=== PATIENT | female | born 1950 | race Caucasian/White ===

== ENCOUNTER 2021-10-02 14:14 | Emergency (ER) | payer MEDICARE, OTHER, SELFPAY ==
[2021-10-02] VITALS (9 sets, daily range): BP systolic 101–125; BP diastolic 79–89; PULSE 61–93; RESP 12–18; TEMP 36.2; O2SAT 93–98; BMI 27.3
--- NOTE | 2021-10-02 15:27 | XR_ITS ---
Final Report Patient: PRIYANKA MARLEY Facility:?[facility] Patient ID:?[id number] Site Patient ID:?[id number]. Site :?[id number] Study:?XRay Chest PORTABLE-10/02/2021 3:45:58 PM Ordering Physician:Ravinder Ann Final Report: INDICATION: Shortness of breath. TECHNIQUE: Chest 1 views. COMPARISON: Chest x-ray 12/27/2020. FINDINGS: Cardiovascular and mediastinum: Heart size and vasculature are normal in caliber and appearance. Lungs and pleural spaces: Lungs are clear. No sign of infiltrate or mass. No sign of pleural effusion. No pneumothorax. Bones and soft tissues: No significant findings. IMPRESSION: No acute findings and no significant changes from the prior exam. Dictated by Elijah Dawkins MD @ 10/02/2021 4:05:03 PM (Electronic Signature)
--- NOTE | 2021-10-02 15:29 | ED.GENADULT ---
HPI - General Adult General Chief complaint: Shortness of Breath/Dyspnea <Marissa Brewer MD - Last Filed: 10/02/21 16:21> Stated complaint: Short of breath, high BP <Marissa Brewer MD - Last Filed: 10/02/21 16:21> Time Seen by Provider: 10/02/21 15:19 <Marissa Brewer MD - Last Filed: 10/02/21 16:21> Source: patient <Marissa Brewer MD - Last Filed: 10/02/21 16:21> Mode of arrival: ambulatory <Marissa Brewer MD - Last Filed: 10/02/21 16:21> Limitations: no limitations <Marissa Brewer MD - Last Filed: 10/02/21 16:21> History of Present Illness HPI narrative: 71-year-old female coming in today complaining of shortness of breath. She states that she was in her usual state of health today when she all of a sudden felt ?awful?. She states that this sensation came over her where she just did not feel good and it came on very suddenly. She checked her blood pressure and it was 190 systolic. She felt acutely short of breath. She states that the shortness of breath continues right now. The sensation started about 2 hours ago and she is generally back to normal however again she feels short of breath with minimal physical activity. She denies any chest pain. She denies fevers, chills, nausea or vomiting. She states that when this occurred her stomach felt like it was in knots but this has resolved. She denies any confusion, changes in her speech or focal weakness. She denies any presyncopal syncopal episode. She has no headache, changes in her vision or hearing. She states that she ate a bowl of soup in pizza for lunch, nothing out of the ordinary. Again, she is concerned because her shortness of breath continues, however she is not short of breath when she is resting. Patient is generally healthy, taking only famotidine and nasal spray as needed. Lives at home with her . She does have a history of asthma however has not had any inhalers or issues with shortness of breath in quite some time. <Marissa Brewer MD - Last Filed: 10/02/21 16:21> Related Data Home medications: Home Medications Medication Instructions Recorded Confirmed famotidine 20 mg tablet (Pepcid) 20 mg PO DAILY 10/02/21 10/02/21 fluticasone propionate 50 1 spray intranasal DAILY PRN 10/02/21 10/02/21 mcg/actuation nasal spray,suspension (24 Hour Allergy Relief) <Marissa Brewer MD - Last Filed: 10/02/21 16:21> Allergies/adverse reactions: Allergies Allergy/AdvReac Type Severity Reaction Status Date / Time No Known Drug Allergies Allergy Verified 10/02/21 14:59 <Marissa Brewer MD - Last Filed: 10/02/21 16:21> Review of Systems Status of ROS: Reports: 10 or more systems reviewed and unremarkable except as noted in History and below <Marissa Brewer MD - Last Filed: 10/02/21 16:21> [facility] Social History: Social History Smoking Status: Never smoker Do you use any of these nicotine containing products: None Second hand tobacco smoke exposure: No How often do you have a drink containing alcohol: never AUDIT-C Alcohol total score: 0 Non-prescribed substance use: denies use <Marissa Brewer MD - Last Filed: 10/02/21 16:21> Exam Narrative: Exam Narrative: Well-nourished well-developed patient in no acute distress. Alert and oriented. Answers questions appropriately. Mood and affect are appropriate. Thoughts are goal oriented and rational. No tangential or magical thinking noted. Patient speaks in full sentences without needing to catch her breath. Speaks without difficulty, speech is not slurred or pressured. HEENT: Normocephalic atraumatic. Pupils are equally round reactive to light. Extraocular muscles are intact. Conjunctivae are moist without any icterus noted. Moist mucous membranes. Posterior pharynx is normal. Neck is soft without any lymphadenopathy or thyromegaly. No masses are appreciated. Cardiovascular: Heart is regular rate and rhythm S1 and S2 are present without any murmurs. Lungs: Clear to auscultation bilaterally no wheezes rhonchi or rales are appreciated. Patient takes deep breaths without any discomfort. Abdomen: Soft and nontender nondistended with normal bowel sounds. No guarding or rebound. No masses or organomegaly appreciated. Extremities: Bilateral lower extremities are without edema. Normal DP and PT pulses. Skin: Well perfused without any obvious rashes. <Marissa Brewer MD - Last Filed: 10/02/21 16:21> Const: Vital Signs, click to edit/add: Vital Signs - 24 hr 10/02/21 14:48 10/02/21 15:00 10/02/21 15:15 Temperature 97.1 F L Pulse Rate [Right Pulse Oximeter] 93 82 84 Respiratory Rate 18 18 12 Blood Pressure [Ri ght Upper Arm] 125/79 110/84 115/83 Pulse Oximetry 95 96 94 Oxygen Delivery Me thod Room Air Room Air Room Air 10/02/21 15:30 10/02/21 16:00 Temperature Pulse Rate [Right Pulse Oximeter] 79 75 Respiratory Rate 18 18 Blood Pressure [Ri ght Upper Arm] 118/89 104/86 Pulse Oximetry 93 97 Oxygen Delivery Me thod Room Air Room Air <Marissa Brewer MD - Last Filed: 10/02/21 16:21> Vital Signs, click to edit/add: Vital Signs - 24 hr 10/02/21 14:48 10/02/21 15:00 10/02/21 15:15 Temperature 97.1 F L Pulse Rate [Right Pulse Oximeter] 93 82 84 Respiratory Rate 18 18 12 Blood Pressure [Ri ght Upper Arm] 125/79 110/84 115/83 Pulse Oximetry 95 96 94 Oxygen Delivery Me thod Room Air Room Air Room Air 10/02/21 15:30 10/02/21 16:00 Temperature Pulse Rate [Right Pulse Oximeter] 79 75 Respiratory Rate 18 18 Blood Pressure [Ri ght Upper Arm] 118/89 104/86 Pulse Oximetry 93 97 Oxygen Delivery Me thod Room Air Room Air <Donna Logan MD - Last Filed: 10/02/21 18:57> Course Course Hospital Course: I was asked to take over care of this patient by Dr. Brewer. Currently awaiting 2nd set of cardiac enzymes as well as EKG and read of the chest x-ray. <Marissa Brewer MD - Last Filed: 10/02/21 16:21> Vital Signs Vital signs: Initial Vital Signs Temperature 97.1 F L 10/02/21 14:48 Temperature Source Temporal Artery Scan 10/02/21 14:48 Pulse Rate 93 10/02/21 14:48 Pulse Rhythm 10/02/21 14:48 Respiratory Rate 18 10/02/21 14:48 Blood Pressure 125/79 10/02/21 14:48 Blood Pressure Mean 94 10/02/21 14:48 Blood Pressure Position Sitting 10/02/21 14:48 Pulse Oximetry 95 10/02/21 14:48 Oxygen Delivery Method 10/02/21 14:48 Vital Signs Temperature 97.1 F L 10/02/21 14:48 Pulse Rate 93 10/02/21 14:48 Respiratory Rate 18 10/02/21 14:48 Blood Pressure 125/79 10/02/21 14:48 Pulse Oximetry 95 10/02/21 14:48 Oxygen Delivery Method 10/02/21 14:48 Temperature 97.1 F L 10/02/21 14:48 Pulse Rate 75 10/02/21 16:00 Respiratory Rate 18 10/02/21 16:00 Blood Pressure 104/86 10/02/21 16:00 Pulse Oximetry 97 10/02/21 16:00 Oxygen Delivery Method 10/02/21 16:00 <Marissa Brewer MD - Last Filed: 10/02/21 16:21> Initial Vital Signs Temperature 97.1 F L 10/02/21 14:48 Temperature Source Temporal Artery Scan 10/02/21 14:48 Pulse Rate 93 10/02/21 14:48 Pulse Rhythm 10/02/21 14:48 Respiratory Rate 18 10/02/21 14:48 Blood Pressure 125/79 10/02/21 14:48 Blood Pressure Mean 94 10/02/21 14:48 Blood Pressure Position Sitting 10/02/21 14:48 Pulse Oximetry 95 10/02/21 14:48 Oxygen Delivery Method 10/02/21 14:48 Vital Signs Temperature 97.1 F L 10/02/21 14:48 Pulse Rate 93 10/02/21 14:48 Respiratory Rate 18 10/02/21 14:48 Blood Pressure 125/79 10/02/21 14:48 Pulse Oximetry 95 10/02/21 14:48 Oxygen Delivery Method 10/02/21 14:48 Temperature 97.1 F L 10/02/21 14:48 Pulse Rate 75 10/02/21 16:00 Respiratory Rate 18 10/02/21 16:00 Blood Pressure 104/86 10/02/21 16:00 Pulse Oximetry 97 10/02/21 16:00 Oxygen Delivery Method 10/02/21 16:00 <Donna Logan MD - Last Filed: 10/02/21 18:57> Medical Decision Making MDM Narrative Medical decision making narrative: 1. Shortness of breath-patient's symptoms have resolved. She has 2 sets of cardiac enzymes that are negative and EKGs which are very reassuring at this time. Did speak with patient who has had normal blood pressure during her time here. tells me that in the past Jane has had episodes of atrial fibrillation and flutter. She has worn a Holter monitor before. She is not currently on any blood thinners. No evidence of an arrhythmia was noted during her stay here in the emergency room. I recommend follow-up with her primary MD for assessment for need of Holter monitor. Would also recommend thrice daily blood pressure checks for 5 days and follow-up. Chest x-ray, cardiac enzymes and EKGs reassuring at this time. D-dimer is negative. 2. Disposition-patient is discharged home. She has eaten some chicken here and has remained alert oriented and stable without any chest pain or shortness of breath. <Donna Logan MD - Last Filed: 10/02/21 18:57> Medical Records Medical records reviewed: Yes I reviewed the patient's medical records <Donna Logan MD - Last Filed: 10/02/21 18:57> Lab Data Lab results reviewed: Yes I reviewed the patient's lab results <Donna Logan MD - Last Filed: 10/02/21 18:57> Labs: Lab Results 10/02/21 10/02/21 10/02/21 Range/Units 15:40 15:55 16:02 WBC 7.01 (4.50-11.00) K/uL RBC 5.07 (4.00-5.20) m/uL Hgb 14.6 (12.0-16.0) gm/dL Hct 44.9 (33.0-51.0) % MCV 89 (80-100) fL MCH 29 (26-34) pg MCHC 33 (32-36) gm/dL RDW Coeff of Judy 12.9 (11.5-15.5) % Plt Count 299 (140-440) K/uL Neut % (Auto) 59.6 (42.0-72.0) % Lymph % (Auto) 27.7 (20-44) % [place] % (Auto) 10.1 (0.0-11.0) % Eos % (Auto) 1.7 (0.0-7.0) % Baso % (Auto) 0.6 (0.0-3.0) % Neut # (Auto) 4.18 (1.7-7.0) K/uL Lymph # (Auto) 1.94 (0.90-2.90) K/uL [place] # (Auto) 0.70 (0.00-0.90) K/UL Eos # (Auto) 0.12 (0.00-0.50) K/uL Baso # (Auto) 0.04 (0.00-0.30) K/uL Abs Immat Gran (auto) 0.02 (0.00-0.30) K/uL ESR (2-20) mm/hr D-Dimer Quant (PE/DVT) (0.00-0.50) ug/ml Sodium (135-149) mmol/L Potassium (3.6-5.1) mmol/L Chloride (96-114) mmol/L Carbon Dioxide (20-32) mmol/L BUN (7-30) mg/dL Creatinine (0.5-1.5) mg/dL Estimated Creat Clear Estimated GFR ml/min Glucose (60-115) mg/dL Calcium (8.4-10.6) mg/dL Total Bilirubin 0.5 (0.1-1.5) mg/dL Direct Bilirubin 0.3 (0.0-0.5) mg/dL AST 73 H (12-35) U/L ALT 56 H (4-35) U/L Alkaline Phosphatase 72 (40-150) U/L C-Reactive Protein (0.5-1.0) mg/dL Total Protein 7.6 (6.0-8.3) g/dL Albumin 4.3 (3.3-5.0) g/dL Urine Color (Yellow) Urine Appearance (Clear) Urine pH (5.0-8.5) Ur Specific [place] (1.000-1.030) Urine Protein (Negative) Urine Glucose (UA) (Negative) Urine Ketones (Negative) Urine Blood (Negative) Urine Nitrite (Negative) Urine Bilirubin (Negative) Urine Urobilinogen (0.2-1.0) Ur Leukocyte Esterase (Negative) Urine RBC (0-2) Urine WBC (0-5) Ur Squamous Epith Cells (None-Few) Urine Bacteria (None) SARS-CoV-2 (PCR) Negative SARS-CoV-2 (Negative) Influenza Type A (PCR) Negative PCR FLU A (Negative) Influenza Type B (PCR) Negative PCR FLU B (Negative) POC Troponin I (0.01-0.04) ng/ml 10/02/21 10/02/21 10/02/21 Range/Units 16:02 16:02 16:02 WBC (4.50-11.00) K/uL RBC (4.00-5.20) m/uL Hgb (12.0-16.0) gm/dL Hct (33.0-51.0) % MCV (80-100) fL MCH (26-34) pg MCHC (32-36) gm/dL RDW Coeff of Judy (11.5-15.5) % Plt Count (140-440) K/uL Neut % (Auto) (42.0-72.0) % Lymph % (Auto) (20-44) % [place] % (Auto) (0.0-11.0) % Eos % (Auto) (0.0-7.0) % Baso % (Auto) (0.0-3.0) % Neut # (Auto) (1.7-7.0) K/uL Lymph # (Auto) (0.90-2.90) K/uL [place] # (Auto) (0.00-0.90) K/UL Eos # (Auto) (0.00-0.50) K/uL Baso # (Auto) (0.00-0.30) K/uL Abs Immat Gran (auto) (0.00-0.30) K/uL ESR 6 (2-20) mm/hr D-Dimer Quant (PE/DVT) 0.32 (0.00-0.50) ug/ml Sodium 142 (135-149) mmol/L Potassium 4.3 (3.6-5.1) mmol/L Chloride 109 (96-114) mmol/L Carbon Dioxide 26 (20-32) mmol/L BUN 16 (7-30) mg/dL Creatinine 0.5 (0.5-1.5) mg/dL Estimated Creat Clear 47.10 Estimated GFR 101 ml/min Glucose 99 (60-115) mg/dL Calcium 9.2 (8.4-10.6) mg/dL Total Bilirubin (0.1-1.5) mg/dL Direct Bilirubin (0.0-0.5) mg/dL AST (12-35) U/L ALT (4-35) U/L Alkaline Phosphatase (40-150) U/L C-Reactive Protein < 0.5 L (0.5-1.0) mg/dL Total Protein (6.0-8.3) g/dL Albumin (3.3-5.0) g/dL Urine Color (Yellow) Urine Appearance (Clear) Urine pH (5.0-8.5) Ur Specific [place] (1.000-1.030) Urine Protein (Negative) Urine Glucose (UA) (Negative) Urine Ketones (Negative) Urine Blood (Negative) Urine Nitrite (Negative) Urine Bilirubin (Negative) Urine Urobilinogen (0.2-1.0) Ur Leukocyte Esterase (Negative) Urine RBC (0-2) Urine WBC (0-5) Ur Squamous Epith Cells (None-Few) Urine Bacteria (None) SARS-CoV-2 (PCR) (Negative) Influenza Type A (PCR) (Negative) Influenza Type B (PCR) (Negative) POC Troponin I (0.01-0.04) ng/ml 10/02/21 10/02/21 10/02/21 Range/Units 16:02 16:36 17:34 WBC (4.50-11.00) K/uL RBC (4.00-5.20) m/uL Hgb (12.0-16.0) gm/dL Hct (33.0-51.0) % MCV (80-100) fL MCH (26-34) pg MCHC (32-36) gm/dL RDW Coeff of Judy (11.5-15.5) % Plt Count (140-440) K/uL Neut % (Auto) (42.0-72.0) % Lymph % (Auto) (20-44) % [place] % (Auto) (0.0-11.0) % Eos % (Auto) (0.0-7.0) % Baso % (Auto) (0.0-3.0) % Neut # (Auto) (1.7-7.0) K/uL Lymph # (Auto) (0.90-2.90) K/uL [place] # (Auto) (0.00-0.90) K/UL Eos # (Auto) (0.00-0.50) K/uL Baso # (Auto) (0.00-0.30) K/uL Abs Immat Gran (auto) (0.00-0.30) K/uL ESR (2-20) mm/hr D-Dimer Quant (PE/DVT) (0.00-0.50) ug/ml Sodium (135-149) mmol/L Potassium (3.6-5.1) mmol/L Chloride (96-114) mmol/L Carbon Dioxide (20-32) mmol/L BUN (7-30) mg/dL Creatinine (0.5-1.5) mg/dL Estimated Creat Clear Estimated GFR ml/min Glucose (60-115) mg/dL Calcium (8.4-10.6) mg/dL Total Bilirubin (0.1-1.5) mg/dL Direct Bilirubin (0.0-0.5) mg/dL AST (12-35) U/L ALT (4-35) U/L Alkaline Phosphatase (40-150) U/L C-Reactive Protein (0.5-1.0) mg/dL Total Protein (6.0-8.3) g/dL Albumin (3.3-5.0) g/dL Urine Color Yellow (Yellow) Urine Appearance Clear (Clear) Urine pH 7.0 (5.0-8.5) Ur Specific [place] 1.020 (1.000-1.030) Urine Protein Negative (Negative) Urine Glucose (UA) Negative (Negative) Urine Ketones Negative (Negative) Urine Blood Negative (Negative) Urine Nitrite Negative (Negative) Urine Bilirubin Negative (Negative) Urine Urobilinogen 0.2 (0.2-1.0) Ur Leukocyte Esterase Negative (Negative) Urine RBC 0-2 (0-2) Urine WBC 0-2 (0-5) Ur Squamous Epith Cells None (None-Few) Urine Bacteria Few A (None) SARS-CoV-2 (PCR) (Negative) Influenza Type A (PCR) (Negative) Influenza Type B (PCR) (Negative) POC Troponin I 0.00 L 0.00 L (0.01-0.04) ng/ml <Marissa Brewer MD - Last Filed: 10/02/21 16:21> Lab Results 10/02/21 10/02/21 10/02/21 Range/Units 15:40 15:55 16:02 WBC 7.01 (4.50-11.00) K/uL RBC 5.07 (4.00-5.20) m/uL Hgb 14.6 (12.0-16.0) gm/dL Hct 44.9 (33.0-51.0) % MCV 89 (80-100) fL MCH 29 (26-34) pg MCHC 33 (32-36) gm/dL RDW Coeff of Judy 12.9 (11.5-15.5) % Plt Count 299 (140-440) K/uL Neut % (Auto) 59.6 (42.0-72.0) % Lymph % (Auto) 27.7 (20-44) % [place] % (Auto) 10.1 (0.0-11.0) % Eos % (Auto) 1.7 (0.0-7.0) % Baso % (Auto) 0.6 (0.0-3.0) % Neut # (Auto) 4.18 (1.7-7.0) K/uL Lymph # (Auto) 1.94 (0.90-2.90) K/uL [place] # (Auto) 0.70 (0.00-0.90) K/UL Eos # (Auto) 0.12 (0.00-0.50) K/uL Baso # (Auto) 0.04 (0.00-0.30) K/uL Abs Immat Gran (auto) 0.02 (0.00-0.30) K/uL ESR (2-20) mm/hr D-Dimer Quant (PE/DVT) (0.00-0.50) ug/ml Sodium (135-149) mmol/L Potassium (3.6-5.1) mmol/L Chloride (96-114) mmol/L Carbon Dioxide (20-32) mmol/L BUN (7-30) mg/dL Creatinine (0.5-1.5) mg/dL Estimated Creat Clear Estimated GFR ml/min Glucose (60-115) mg/dL Calcium (8.4-10.6) mg/dL Total Bilirubin 0.5 (0.1-1.5) mg/dL Direct Bilirubin 0.3 (0.0-0.5) mg/dL AST 73 H (12-35) U/L ALT 56 H (4-35) U/L Alkaline Phosphatase 72 (40-150) U/L C-Reactive Protein (0.5-1.0) mg/dL Total Protein 7.6 (6.0-8.3) g/dL Albumin 4.3 (3.3-5.0) g/dL Urine Color (Yellow) Urine Appearance (Clear) Urine pH (5.0-8.5) Ur Specific [place] (1.000-1.030) Urine Protein (Negative) Urine Glucose (UA) (Negative) Urine Ketones (Negative) Urine Blood (Negative) Urine Nitrite (Negative) Urine Bilirubin (Negative) Urine Urobilinogen (0.2-1.0) Ur Leukocyte Esterase (Negative) Urine RBC (0-2) Urine WBC (0-5) Ur Squamous Epith Cells (None-Few) Urine Bacteria (None) SARS-CoV-2 (PCR) Negative SARS-CoV-2 (Negative) Influenza Type A (PCR) Negative PCR FLU A (Negative) Influenza Type B (PCR) Negative PCR FLU B (Negative) POC Troponin I (0.01-0.04) ng/ml 10/02/21 10/02/21 10/02/21 Range/Units 16:02 16:02 16:02 WBC (4.50-11.00) K/uL RBC (4.00-5.20) m/uL Hgb (12.0-16.0) gm/dL Hct (33.0-51.0) % MCV (80-100) fL MCH (26-34) pg MCHC (32-36) gm/dL RDW Coeff of Judy (11.5-15.5) % Plt Count (140-440) K/uL Neut % (Auto) (42.0-72.0) % Lymph % (Auto) (20-44) % [place] % (Auto) (0.0-11.0) % Eos % (Auto) (0.0-7.0) % Baso % (Auto) (0.0-3.0) % Neut # (Auto) (1.7-7.0) K/uL Lymph # (Auto) (0.90-2.90) K/uL [place] # (Auto) (0.00-0.90) K/UL Eos # (Auto) (0.00-0.50) K/uL Baso # (Auto) (0.00-0.30) K/uL Abs Immat Gran (auto) (0.00-0.30) K/uL ESR 6 (2-20) mm/hr D-Dimer Quant (PE/DVT) 0.32 (0.00-0.50) ug/ml Sodium 142 (135-149) mmol/L Potassium 4.3 (3.6-5.1) mmol/L Chloride 109 (96-114) mmol/L Carbon Dioxide 26 (20-32) mmol/L BUN 16 (7-30) mg/dL Creatinine 0.5 (0.5-1.5) mg/dL Estimated Creat Clear 47.10 Estimated GFR 101 ml/min Glucose 99 (60-115) mg/dL Calcium 9.2 (8.4-10.6) mg/dL Total Bilirubin (0.1-1.5) mg/dL Direct Bilirubin (0.0-0.5) mg/dL AST (12-35) U/L ALT (4-35) U/L Alkaline Phosphatase (40-150) U/L C-Reactive Protein < 0.5 L (0.5-1.0) mg/dL Total Protein (6.0-8.3) g/dL Albumin (3.3-5.0) g/dL Urine Color (Yellow) Urine Appearance (Clear) Urine pH (5.0-8.5) Ur Specific [place] (1.000-1.030) Urine Protein (Negative) Urine Glucose (UA) (Negative) Urine Ketones (Negative) Urine Blood (Negative) Urine Nitrite (Negative) Urine Bilirubin (Negative) Urine Urobilinogen (0.2-1.0) Ur Leukocyte Esterase (Negative) Urine RBC (0-2) Urine WBC (0-5) Ur Squamous Epith Cells (None-Few) Urine Bacteria (None) SARS-CoV-2 (PCR) (Negative) Influenza Type A (PCR) (Negative) Influenza Type B (PCR) (Negative) POC Troponin I (0.01-0.04) ng/ml 10/02/21 10/02/21 10/02/21 Range/Units 16:02 16:36 17:34 WBC (4.50-11.00) K/uL RBC (4.00-5.20) m/uL Hgb (12.0-16.0) gm/dL Hct (33.0-51.0) % MCV (80-100) fL MCH (26-34) pg MCHC (32-36) gm/dL RDW Coeff of Judy (11.5-15.5) % Plt Count (140-440) K/uL Neut % (Auto) (42.0-72.0) % Lymph % (Auto) (20-44) % [place] % (Auto) (0.0-11.0) % Eos % (Auto) (0.0-7.0) % Baso % (Auto) (0.0-3.0) % Neut # (Auto) (1.7-7.0) K/uL Lymph # (Auto) (0.90-2.90) K/uL [place] # (Auto) (0.00-0.90) K/UL Eos # (Auto) (0.00-0.50) K/uL Baso # (Auto) (0.00-0.30) K/uL Abs Immat Gran (auto) (0.00-0.30) K/uL ESR (2-20) mm/hr D-Dimer Quant (PE/DVT) (0.00-0.50) ug/ml Sodium (135-149) mmol/L Potassium (3.6-5.1) mmol/L Chloride (96-114) mmol/L Carbon Dioxide (20-32) mmol/L BUN (7-30) mg/dL Creatinine (0.5-1.5) mg/dL Estimated Creat Clear Estimated GFR ml/min Glucose (60-115) mg/dL Calcium (8.4-10.6) mg/dL Total Bilirubin (0.1-1.5) mg/dL Direct Bilirubin (0.0-0.5) mg/dL AST (12-35) U/L ALT (4-35) U/L Alkaline Phosphatase (40-150) U/L C-Reactive Protein (0.5-1.0) mg/dL Total Protein (6.0-8.3) g/dL Albumin (3.3-5.0) g/dL Urine Color Yellow (Yellow) Urine Appearance Clear (Clear) Urine pH 7.0 (5.0-8.5) Ur Specific [place] 1.020 (1.000-1.030) Urine Protein Negative (Negative) Urine Glucose (UA) Negative (Negative) Urine Ketones Negative (Negative) Urine Blood Negative (Negative) Urine Nitrite Negative (Negative) Urine Bilirubin Negative (Negative) Urine Urobilinogen 0.2 (0.2-1.0) Ur Leukocyte Esterase Negative (Negative) Urine RBC 0-2 (0-2) Urine WBC 0-2 (0-5) Ur Squamous Epith Cells None (None-Few) Urine Bacteria Few A (None) SARS-CoV-2 (PCR) (Negative) Influenza Type A (PCR) (Negative) Influenza Type B (PCR) (Negative) POC Troponin I 0.00 L 0.00 L (0.01-0.04) ng/ml <Donna Logan MD - Last Filed: 10/02/21 18:57> Imaging Data Chest x-ray: Attestation: I have reviewed the pertinent imaging results. <Donna Logan MD - Last Filed: 10/02/21 18:57> My impression: No acute finding <Donna Logan MD - Last Filed: 10/02/21 18:57> Radiologist's impression: No acute findings <Donna Logan MD - Last Filed: 10/02/21 18:57> ECG Data Attestation: I personally reviewed and interpreted this ECG as follows: <Donna Logan MD - Last Filed: 10/02/21 18:57> Prior ECG tracings: available for review <Donna Logan MD - Last Filed: 10/02/21 18:57> Interpretation: 1. EKG 1. Shows sinus rhythm at a rate of 76. Questionable old septal infarct with Q-waves small noted in V1 and V2. However compared to EKG from December of 2020 this is largely unchanged. No acute ST or T-wave changes. <Donna Logan MD - Last Filed: 10/02/21 18:57> Discharge Plan Discharge Clinical Impression: Shortness of breath <Marissa Brewer MD - Last Filed: 10/02/21 16:21> Patient Disposition: Home, Self-Care <Marissa Brewer MD - Last Filed: 10/02/21 16:21> Condition: Improved <Marissa Brewer MD - Last Filed: 10/02/21 16:21> Additional Instructions: follow up with your primary md for recheck. Would recommend Holter monitor to check rhythm. Would also recommend your blood pressure checks 3 times a day for 5 days and follow-up. return to the er for worsening symptoms and as needed <Marissa Brewer MD - Last Filed: 10/02/21 16:21> Prescriptions: No Action famotidine [Pepcid] 20 mg tablet 20 mg PO DAILY fluticasone propionate [24 Hour Allergy Relief] 50 mcg/actuation spray,suspension 1 spray intranasal DAILY PRN Rx Instructions: administer into each nostril <Marissa Brewer MD - Last Filed: 10/02/21 16:21> Follow Up/Referrals: Violette Gates DO [Primary Care Provider] - <Marissa Brewer MD - Last Filed: 10/02/21 16:21> Stand Alone Forms: [employer] Info Instructions <Mraissa Brewer MD - Last Filed: 10/02/21 16:21>
[2021-10-02 16:06] LABS: Basophils Absolute Auto 0.04 K/uL (0.00-0.30); Basophils Percent Auto 0.6 % (0.0-3.0); Eosinophils Absolute Auto 0.12 K/uL (0.00-0.50); Eosinophils Percent Auto 1.7 % (0.0-7.0); Hematocrit 44.9 % (33.0-51.0); Hemoglobin* 14.6 gm/dL (12.0-16.0); Immature Granulocytes Abs Auto 0.02 K/uL (0.00-0.30); Lymphocytes Absolute Auto 1.94 K/uL (0.90-2.90); Lymphocytes Percent Auto 27.7 % (20-44); Mean Corpuscular HGB Conc 33 gm/dL (32-36); Mean Corpuscular Hemoglobin 29 pg (26-34); Mean Corpuscular Volume 89 fL (80-100); Monocytes Percent Auto 10.1 % (0.0-11.0); Neutrophils Absolute Auto 4.18 K/uL (1.7-7.0); Neutrophils Percent Auto 59.6 % (42.0-72.0); Platelet Count* 299 K/uL (140-440); RDW Coefficient of Variation % 12.9 % (11.5-15.5); Red Blood Count 5.07 m/uL (4.00-5.20); White Blood Count* 7.01 K/uL (4.50-11.00)
[2021-10-02 16:08] LABS: Slide Review Reflex No
[2021-10-02 16:20] LABS: Albumin* 4.3 g/dL (3.3-5.0)
[2021-10-02 16:20] LABS: Chloride* 109 mmol/L (96-114); Sodium* 142 mmol/L (135-149)
[2021-10-02 16:21] LABS: Potassium* 4.3 mmol/L (3.6-5.1)
[2021-10-02 16:22] LABS: Bilirubin Direct* 0.3 mg/dL (0.0-0.5); Bilirubin Total* 0.5 mg/dL (0.1-1.5); Total Protein* 7.6 g/dL (6.0-8.3)
[2021-10-02 16:23] LABS: Creatinine* 0.5 mg/dL (0.5-1.5); Estimated Glomerular Filt Rate 101 ml/min
[2021-10-02 16:23] LABS: Alanine Aminotransferase* 56 U/L (4-35); Alkaline Phosphatase* 72 U/L (40-150); Aspartate Amino Transferase* 73 U/L (12-35)
[2021-10-02 16:24] LABS: Blood Urea Nitrogen* 16 mg/dL (7-30); Carbon Dioxide* 26 mmol/L (20-32)
[2021-10-02 16:25] LABS: Calcium* 9.2 mg/dL (8.4-10.6); Glucose* 99 mg/dL (60-115)
[2021-10-02 16:27] LABS: C Reactive Protein* < 0.5 mg/dL (0.5-1.0)
[2021-10-02 16:34] LABS: D Dimer Quantitative* 0.32 ug/ml (0.00-0.50)
[2021-10-02 16:42] LABS: Appearance Urine Clear (Clear); Bilirubin Urine Negative (Negative); Blood Urine Negative (Negative); Color Urine Yellow (Yellow); Glucose Urine Negative (Negative); Ketones Urine Negative (Negative); Leukocyte Esterase Urine Negative (Negative); Nitrite Urine Negative (Negative); Protein Urine Negative (Negative); Urobilinogen Urine 0.2 (0.2-1.0)
[2021-10-02 16:49] LABS: PCR FLU A Negative PCR FLU A (Negative); PCR FLU B Negative PCR FLU B (Negative)
[2021-10-02 16:51] LABS: Bacteria Urine Few; RBC Urine 0-2 (0-2); WBC Urine 0-2 (0-5)
[2021-10-02 16:52] LABS: Erythrocyte SedimentationRate* 6 mm/hr (2-20)
[2021-10-02 16:56] LABS: SARS PCR* Negative SARS-CoV-2 (Negative)
== END 2021-10-02 18:59 | disposition home or self-care (01) ==
PROVIDERS: Family Medicine; Emergency Provider Family Medicine; PCP Family Medicine
DX: R06.02 Shortness of breath (principal)
CPT/HCPCS: 36415; 71045; 80048; 80076; 81001; 84484; 85025; 85379; 85651; 86140; 87086; 87631; 93005; 99285

== ENCOUNTER 2022-12-07 09:15 | Emergency (ER) | payer MEDICARE, OTHER, SELFPAY ==
[2022-12-07 09:19] VITALS: BP 140/83; PULSE 82; RESP 20; TEMP 36.9; O2SAT 99; BMI 26.6
--- NOTE | 2022-12-07 09:57 | CRLHL7_ITS ---
For Patients: As a result of the Century Cures Act, medical imaging exams and procedure reports are released immediately into your electronic medical record. You may view this report before your referring provider. If you have questions, please contact your health care provider. Indication: Back pain after chiropractor Technique: Volumetric multidetector CT images of the lumbar spine were obtained without the administration of IV contrast. Comparison: None available. Findings: The lumbar vertebral body heights are grossly maintained with moderate endplate subchondral cystic changes worst at the L4-L5 level. There is straightening of the normal lumbar lordosis without significant spondylolisthesis. There is mild degenerative disc height loss and marginal osteophyte formation worse at the L3-L4 and L4-L5 levels. There is mild spinal canal narrowing and effacement of the lateral recesses at the L4-L5 level. There is no displaced fracture or dislocation. The paraspinous soft tissues are grossly within normal limits. Impression: Moderate to severe degenerative changes worst at the L4-L5 level. No evidence of displaced fracture. Please note that all CT scans at this facility use dose modulation, iterative reconstruction, and/or weight-based dosing when appropriate to reduce radiation dose to as low as reasonably achievable. Dictated by Moises Conteh MD @ 12/07/2022 11:02:58 AM (Electronically Signed)
[2022-12-07] MEDS: OXYCODONE 5 MG TABLET PO (10:02)
--- NOTE | 2022-12-07 11:31 | ED_ITS ---
HPI - General Adult General Date Seen: 12/07/22 Chief complaint: Back Injury/Pain Stated complaint: Lower back pain Time Seen by Provider: 12/07/22 09:28 Source: patient Mode of arrival: ambulatory Limitations: no limitations History of Present Illness HPI narrative: Patient is a 72-year-old woman who comes in with low back pain. She says it is little worse on the right but goes all the way across her back. She has history of problems with her back due to arthritis, says she goes to the chiropractor fairly regularly and typically he just uses the hand held claims adjuster crop on her. She says Sunday when she was there there was some kind of issue with the table and there was a sudden shift to her back, she had sharp pain at that time which has persisted and worsened. She does not have radicular pain, weakness, numbness. She has not had any systemic symptoms such as fevers, weight loss, night sweats. No bowel or bladder changes. She has been taking ibuprofen and Aleve without good benefit at home. If she lays still she feels okay but when she tries to move pain is severe. She does note that her urine has smelled stronger over the past couple of days, notably however she is drinking a lot last because she has not felt her best. She is not having any urinary symptoms such as dysuria, frequency urgency or hematuria. Related Data Home Medications Medication Instructions Recorded Confirmed famotidine 20 mg tablet (Pepcid) 20 mg PO DAILY 10/02/21 12/07/22 fluticasone propionate 50 1 spray intranasal DAILY PRN 10/02/21 12/07/22 mcg/actuation nasal spray,suspension (24 Hour Allergy Relief) fluticasone propionate 50 1 spray intranasal DAILY PRN 12/07/22 12/07/22 mcg/actuation nasal spray,suspension (24 Hour Allergy Relief) Allergies Allergy/AdvReac Type Severity Reaction Status Date / Time No Known Drug Allergies Allergy Verified 12/07/22 09:24 Review of Systems Status of ROS: Reports: 10 or more systems reviewed and unremarkable except as noted in History and below PFSH PFS Social History Smoking Status: Never smoker Do you use any of these nicotine containing products: None Second hand tobacco smoke exposure: No How often do you have a drink containing alcohol: never How often do you have six or more drinks on one occasion: Never AUDIT-C Alcohol total score: 0 Non-prescribed substance use: denies use Exam Narrative: Exam Narrative: Vital signs as noted above. In general, an alert, nontoxic elderly woman. She is lying on her back with her legs propped up on a pillow. Head: Normocephalic, atraumatic. Eyes: Pupils are equal reactive. Extraocular movements are full. Conjunctivae are normal. ENT: Mucous membranes are moist. Throat is normal. Neck: Supple without lymphadenopathy. Heart: Regular rate and rhythm. No murmur or rub. Lungs: Clear bilaterally. No increased work of breathing, crackles or wheezes. Abdomen: Soft and nontender. No organomegaly. Back: She has tenderness across the mid lumbar region. No evidence of trauma. Extremities: Well perfused. No edema. No calf tenderness. Pulses intact. Neurologic: Patient is alert and oriented to person and place. Speech is fluent. Face is symmetric. Moves all extremities equally. Strength is 5 of 5 in bilateral lower extremities. Sensation is intact to light touch. Affect: Normal. Skin: Warm and dry. Well perfused. Const: Vital Signs, click to edit/add: Vital Signs - 24 hr 12/07/22 09:19 12/07/22 12:10 Temperature 98.4 F Pulse Rate [Right Pulse Oximeter] 82 Respiratory Rate 20 Blood Pressure [Ri ght Upper Arm] 140/83 H Pulse Oximetry 99 97 Oxygen Delivery Me thod Room Air Documenting provider has reviewed patient's vital signs: yes Course Course ED Course: I elected to do a CT scan given her age and that there was a degree of trauma to this. This is read as negative for acute findings by Radiology, I did not see any evidence of compression fracture. 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 Initially gave her oxycodone which she said helped a little bit but she still did not feel that she was able to get up out of bed. We placed an IV, gave her 4 mg of morphine and 15 mg of Toradol and she is improved to the point that she can go home. I am going to give her some oxycodone for use at home although we discussed that adding Tylenol to her current regimen of taking 1 Aleve and 1 ibuprofen may provide a little more benefit. I do not think symptoms are urinary in the absence of any UTI symptoms and with a significant musculoskeletal component. Return for acute worsening, otherwise primary care follow-up if not improving over the next week or so. Vital Signs Vital signs: Initial Vital Signs Temperature 98.4 F 12/07/22 09:19 Temperature Source Temporal Artery Scan 12/07/22 09:19 Pulse Rate 82 12/07/22 09:19 Pulse Rhythm Regular 12/07/22 09:19 Respiratory Rate 20 12/07/22 09:19 Blood Pressure 140/83 H 12/07/22 09:19 Blood Pressure Mean 102 12/07/22 09:19 Blood Pressure Position Sitting 12/07/22 09:19 Pulse Oximetry 99 12/07/22 09:19 Oxygen Delivery Method Room Air 12/07/22 09:19 Vital Signs Temperature 98.4 F 12/07/22 09:19 Pulse Rate 82 12/07/22 09:19 Respiratory Rate 20 12/07/22 09:19 Blood Pressure 140/83 H 12/07/22 09:19 Pulse Oximetry 99 12/07/22 09:19 Oxygen Delivery Method Room Air 12/07/22 09:19 Temperature 98.4 F 12/07/22 09:19 Pulse Rate 82 12/07/22 09:19 Respiratory Rate 20 12/07/22 09:19 Blood Pressure 140/83 H 12/07/22 09:19 Pulse Oximetry 97 12/07/22 12:10 Oxygen Delivery Method Room Air 12/07/22 09:19 Discharge Plan Discharge Clinical Impression: Low back pain Patient Disposition: Home, Self-Care Condition: Improved Instructions: Back Pain (ED) Additional Instructions: Continue with your ibuprofen/Aleve as you have been. Consider adding 1000 mg of Tylenol at the same time. Oxycodone if needed for more severe pain. Heat and or ice. Primary care follow-up if not gradually improving over the next week or so. Return for acute worsening. Prescriptions: No Action fluticasone propionate [24 Hour Allergy Relief] 50 mcg/actuation spray,suspension 1 spray intranasal DAILY PRN Rx Instructions: administer into each nostril famotidine [Pepcid] 20 mg tablet 20 mg PO DAILY fluticasone propionate [24 Hour Allergy Relief] 50 mcg/actuation spray,suspension 1 spray intranasal DAILY PRN Rx Instructions: administer into each nostril Follow Up/Referrals: Violette Gates DO [Primary Care Provider] - Stand Alone Forms: [employer] Info Instructions
[2022-12-07 12:10] VITALS: O2SAT 97
[2022-12-07] MEDS: KETOROLAC 15 MG/ML inj IVP (12:10)
[2022-12-07] MEDS: MORPHINE 4 MG/ML INJ IVP (12:11)
== END 2022-12-07 13:45 | disposition home or self-care (01) ==
PROVIDERS: Emergency Provider Emergency Medicine; PCP Family Medicine
DX: M54.50 Low back pain, unspecified (principal)
CPT/HCPCS: 72131; 94761; 96374; 96375; 99284; A9270; J1885; J2270